=== PATIENT | female | born 1960 | race Caucasian/White ===

== ENCOUNTER → 2023-03-26 17:07 | Outpatient (CLI) | payer OTHER, SELFPAY | PROVIDERS: PCP Physician Assistant; Referring Provider Orthopaedic Surgery; Visit Provider Orthopaedic Surgery | DX: Z01.818 Encounter for other preprocedural examination (principal) | CPT/HCPCS: 93005 ==

== ENCOUNTER 2023-05-25 08:40 | Day surgery (SDC) | payer OTHER, SELFPAY ==
[2023-05-17 12:42] VITALS: BMI 31.2
[2023-05-25] VITALS (11 sets, daily range): BP systolic 111–170; BP diastolic 63–90; PULSE 64–76; RESP 11–17; TEMP 35.7–36.5; O2SAT 93–100; BMI 31.1
--- NOTE | 2023-05-25 | DI.RAD.S_ITS ---
PROCEDURE: XR HIP W PEL IF DONE RT 2V INDICATIONS: POST OP TECHNIQUE: 2 view(s) of the hip acquired. COMPARISON: [facility], CR, XR PELVIS 1-2V, 05/25/2023, 12:23. [facility] [place], CR, XR PELVIS WITH LATERAL HIP RIGHT, 02/26/2023, 11:11. FINDINGS: Bones: Patient is status post right hip arthroplasty, with hardware components in expected positions. The hip joint appears congruent. The visualized bony structures appear intact. Soft tissues: Overlying postoperative changes are noted. No suspicious soft tissue densities. IMPRESSION: Normal postoperative examination. Dictated by: Napoleon Naylor M.D. on 05/25/2023 at 14:18 Approved by: Napoleon Naylor M.D. on 05/25/2023 at 14:18
--- NOTE | 2023-05-25 06:00 | DI.RAD.S_ITS ---
PROCEDURE: XR PELVIS 1-2V INDICATIONS: postop TECHNIQUE: Intra-operative view of the pelvis and hip acquired. COMPARISON: [facility] [place], [place], XR PELVIS WITH LATERAL HIP RIGHT, 02/26/2023, 11:11. FINDINGS: Bones: Intraoperative devices prior to placement of arthroplasty prostheses are in expected positions. No fractures or suspicious bony lesions. Soft tissues: Overlying surgical retractors are present, along with other intraoperative changes. IMPRESSION: Intraoperative right hip arthroplasty. Dictated by: Sonja Cameron M.D. on 05/25/2023 at 13:31 Approved by: Sonja Cameron M.D. on 05/25/2023 at 13:31
[2023-05-25] MEDS: CELECOXIB 200 MG CAPSULE PO (09:33)
[2023-05-25] MEDS: ACETAMINOPHEN 325 MG TABLET 975 MG PO (09:33)
[2023-05-25] MEDS: LACTATED RINGERS 1,000 ML 42 ML IV (09:34)
[2023-05-25] MEDS: VANCOMYCIN 1,000 MG/200 ML PIGGYBACK 200 MG IV (10:03)
--- NOTE | 2023-05-25 10:39 | P.OP_ITS ---
Operative Date/Time/Diagnoses Date of procedure: 05/25/23 Time of procedure: 11:20 Pre-op diagnosis: right hip OA Post-op diagnosis: same Procedure & Clinicians Procedure: Right total hip arthroplasty posterior approach Same procedure as scheduled: Yes Indications: The patient has had progressively worsening right hip pain with radiographic changes consistent with arthritis. Non-operative management has failed and the patient has requested total hip replacement. The risks, benefits and alternatives to surgery were discussed with the patient prior to proceeding. Risks discussed included, but were not limited to, failure to relieve pain, leg length discrepancy, dislocation, stiffness, infection, nerve damage, deep venous thrombosis, pulmonary embolism, stroke, coma, heart attack, permanent paralysis and , as well as the potential need for eventual revision of the prosthetic. Surgeon: Emelia Urena Registered Physical Therapist: Idris Burris Anesthesia Type: General Operative Notes Findings: Severe right hip OA, adequate bone, adequate stability Closure Type: primary Specimen(s): none sent Prosthetic devices, grafts, tissues, transplants, or devices: Urena and Nephew 54mm R3, one 6.5 mm screw, dual mobility 42 by 54 liner, 28 by 42mm, +8 oxinium 28 head, Polarstem size 3 lateral with collar, Estimated Blood Loss (mL): 250 Blood products transfused: none Procedure in detail: The patient was seen in the pre-operative area, where the patient identified the right hip as the operative site and this was marked with my initials. The patient received pre-operative antibiotics and was taken to the operating room and placed on the operative table in the left lateral decubitus position after satisfactory anesthesia. A supervisor kennel out was performed. The right leg was prepared from the ankle to the iliac crest with ChloroPrep in the usual fashion and draped through sterile drapes. The hip was approached through an approximately 20 cm incision centered over the greater trochanter and curving gently posteriorly as it went proximally. This was carried sharply to the fascia adam, which was divided and retracted with a self retaining retractor. The trochanteric bursa was excised with care being taken to avoid the sciatic nerve, which was identified and protected throughout the case. The short external rotators were incised and the capsulomuscular flap was raised and tagged for later repair. The hip was dislocated, and a femoral neck osteotomy performed approximately 15 mm above the lesser trochanter. Retractors were placed around the femur. The canal was opened with a box cutting osteotome, followed by a T handled reamer and a lateralizing reamer. The chili pepper broach was then used, followed by sequential broaching until there was good stability of the broach in the femur. Retractors were placed to expose the acetabulum. The labrum and central soft tissues were removed. Reaming was performed initially going up in 2 mm increments, then 1 mm increments until good bite was obtained with an odd sized reamer. The cup 1 mm larger than the last reamer was then inserted using the appropriate anteversion guides. It was further stabilized with a single screw. A trial neutral liner was placed. The broach was placed in the canal. A trial head and neck were then placed and the hip relocated and checked for leg length and stability. An intraoperative film confirmed the component position and no evidence of fracture. The patient was stable in the position of sleep, of squatting, and could be put through a range of motion with 45 degrees internal rotation without dislocation. At 90 degrees flexion, internal rotation to 70 degrees was possible before dislocation. This was felt to be satisfactory and the appropriate components were opened, and the trials were removed. The acetabular dual mobility liner was impacted into position. The final stem was then impacted into the prepared femoral canal. A brief Betadine soak was performed while trialing with head options. The hip was meticulously irrigated with normal saline. Finally the femoral head was impacted onto the stem. The acetabulum was cleared of all material and the hip relocated one final time. The capsulomuscular flap was then repaired to the greater trochanter though an awl hole using the tag sutures. The short external rotators were repaired with a nonabsorbable suture. The fascia adam was closed with Vicryl. The subcutaneous layer was closed with barbed sutures and SteriStrips. An Aquacel Ag dressing was applied and the patient was taken to recovery having tolerated the procedure well. Complications: none Post-operative Condition: stable Disposition: Acute Care Plan for aftercare: The patient will be maintained on a standard total hip replacement protocol with weight bearing as tolerated and posterior hip precautions. The patient will receive Aspirin and sequential compression devices for DVT prophylaxis. The patient will be discharged home when safe for the home environment.
--- NOTE | 2023-05-25 10:39 | PM.PREOP ---
Pre-operative Note Interval Note History & Physical reviewed/Exam performed by Physician: Yes Changes to H&P: No
[2023-05-25] MEDS: CEFAZOLIN 2 GM/100 ML PREMIX 100 ML IV ×2 (11:15→18:17)
[2023-05-25] MEDS: TRANEXAMIC ACID 1,000 MG VIAL 1000 MG INJ ×2 (11:30→13:01)
--- NOTE | 2023-05-25 11:45 | SUR.OPER ---
Lateral on padded OR bed. Gel axillary roll. Arms secured on padded armboard with pillow supporting top arm. Padded hip positioner braces x4 - anterior and posterior chest and pelvis. Additional gel pad used anterior pelvis. Gel pad under bottom leg from knee to foot and secured with tape over sheet.
[2023-05-25] MEDS: BUPIVACAINE LIPOSOME 266 MG/20 ML VIAL INJ (11:51)
[2023-05-25] MEDS: BUPIVACAINE 0.25% (PF) 60 ML, EPINEPHrine 0.3 MG INJ (11:52)
[2023-05-25] MEDS: ONDANSETRON 4 MG/2 ML INJ IV (13:58)
[2023-05-25] MEDS: METOCLOPRAMIDE 10 MG/2 ML INJ IV (13:58)
[2023-05-25] MEDS: TRAMADOL 50 MG TABLET PO (14:10)
[2023-05-25] MEDS: hydrOXYzine 50 MG/ML INJ 25 MG IM (14:43)
[2023-05-25] MEDS: IBUPROFEN 400 MG TABLET PO ×3 (16:04→23:47)
[2023-05-25] MEDS: LACTATED RINGERS 1,000 ML 100 ML IV ×2 (16:11→17:25)
[2023-05-25] MEDS: ACETAMINOPHEN 325 MG TABLET 650 MG PO ×2 (16:20→21:38)
[2023-05-25] MEDS: DICYCLOMINE 10 MG CAPSULE 20 MG PO ×2 (17:25→20:54)
--- NOTE | 2023-05-25 17:31 | PT-IP ANOTE ---
PT attempted to perform PT eval, however pt reports she is too tired and groggy to attempt objective eval. PT eval to be performed on next service day. All neds were met and call light was placed within reach.
--- NOTE | 2023-05-25 18:12 | PC.NURSE ---
Patient arrived from PACU at 1500. VSS, afebrile on RA. She reports pain in is minimal to R hip. Aquacel to R hip C/D/I. She is initially very lethargic, able to answer simple single questions and dozes off back to sleep. Pt denies any numbness to BLE's. She awakens at approximately 1745 and is able to tolerate dinner well. Admission assessment completed. IVF LR @100ml/hr. Patient states she has not voided since this a.m. going in to surgery approximately 0930 a.m.
[2023-05-25] MEDS: DOCUSATE 100 MG CAPSULE PO (20:54)
[2023-05-25] MEDS: ASPIRIN EC 81 MG TABLET PO (20:54)
[2023-05-25] MEDS: ATORVASTATIN 20 MG TABLET 80 MG PO (20:54)
[2023-05-25] MEDS: METFORMIN XR 500 MG TABLET 750 MG PO (20:54)
[2023-05-25] MEDS: ALPRAZolam 0.25 MG TABLET 0.5 MG PO (21:36)
--- NOTE | 2023-05-26 | PC.NURSE ---
Patient is alert and oriented. Breath sounds CTA with RA sat of 99%; remains on continuos oximetry per MD order. HRR. Denied nausea. BT hypoactive and denies flatus as yet; states she has history of constipation following past surgery. Voiding on toilet; denied dysuria. Is able to move herself in bed. Up to bathroom with walker and 2 assists as earlier reportedly had difficulty with right knee buckling. Has had pain in right LE related to surgery and chronic L3-5 nerve compression but pain has been managed with use of scheduled ibuprofen + tylenol. Aquacel dressing to right posterior hip is CDI. CMS is intact except is unable to lift right leg off bed. Fall risk assessment is high and bed alarm is activated. Wearing bilateral calf SCD's.
[2023-05-26 00:12] VITALS: BP 119/63; PULSE 64; RESP 16; TEMP 35.8; O2SAT 100
[2023-05-26] MEDS: CEFAZOLIN 2 GM/100 ML PREMIX 100 ML IV (02:58)
[2023-05-26] MEDS: ACETAMINOPHEN 325 MG TABLET 650 MG PO ×3 (03:54→15:21)
[2023-05-26] MEDS: IBUPROFEN 400 MG TABLET PO ×4 (03:55→15:21)
[2023-05-26 06:25] VITALS: BP 109/55; PULSE 72; RESP 18; TEMP 35.7; O2SAT 99
[2023-05-26 06:28] LABS: Hematocrit 28.6 % (36-46); Hemoglobin 9.8 g/dL (12.0-16.0)
--- NOTE | 2023-05-26 08:42 | CM.DANOTE ---
DCP: Case received, EMR reviewed and met with patient. Introduced self and role. Was able to obtain information regarding patient's baseline activity level prior to surgery. DCP assessment completed with information currently available. Patient is a 63 year old female who admitted yesterday morning to the care of the orthopedic team. PCP: Dr. Morris. Payer: confirmed: [facility] ([place]) Patient came to the hospital for a surgical procedure. Patient had right total hip arthroplasty posterior approach. Patient has history of right hip OA. Met with patient in her room. She is alert, oriented, was sitting up having her breakfast. Confirmed that she resides outside of [place], lives alone, but her brother, Phil, and spouse, live on the property. She is independent, does use a cane at times for stability. 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 She has three stairs to get in the home, and confirmed that her brother and [id number] should be able to assist her when she goes home. She will be working with P.T. P: DCP to continue to follow for any needs. Patient should be able to go home when stable, but will need to see how she does with P.T. Clarita Grant RN/Community Reinvestment Act Officer Discharge Planning/Care Management CM Discharge Assessment Start: 05/26/23 08:41 Freq: Status: Active Protocol: Document 05/26/23 08:41 (Rec: 05/26/23 08:42 [id number]) Discharge Planning Assessment Assigned Casting Finisher Clarita Grant RN/Community Reinvestment Act Officer Advance Directives? No History Provided By Patient,Medical Record Prior Living Arrangements House Household Members family Comment Phil Villalobos and spouse live on the property Type of transporation used prior to Drives own vehicle admit Independent with ADL's Yes Is patient alert and oriented? Yes DME Already Rented / Owned Cane Barriers to Discharge No Discharge Plan Home Whiteboard Updated in Patient Room with Yes name and ext. # of Casting Finisher Review Status In Process Next Review Type Continued Stay Review Pre-Anesthesia Assessment Start: 05/17/23 12:42 Freq: Status: Complete Protocol: Document 05/17/23 12:42 [place] (Rec: 05/17/23 13:35 [place] [id number]) Pre-Anesthesia Assessment Patient Information Reviewed Via Phone Assessment Assessment Completed With Patient H&P Completed Within 30 Days Yes: 05/07/23 Diagnostic Results BMP/CMP,CBC,EKG Comment Scanned labs Primary Care Provider Elsie Morris Medical Clearance Received No Seen Specialist in Last 12 Months Yes Specialist Seen Orthopedist Preferred Language Slovenian Height 5 ft 11 in Weight 224 lb Body Mass Index (BMI) 31.2 Hearing Ability Normal Visual Impairment Partially Limited Visual Assist Glasses Dentition Type Dental Implants Barriers to Learning None Other Aids No Hx Anesthesia Reactions Yes: Severe nausea Hx Family Anesthesia Reaction No Hx Malignant Hyperthermia No Hx Blood Transfusions No Hx Blood Transfusion Reaction No Anesthesia Review Requested No Executive Casino Host No alcohol intake current alcohol intake frequency a few times a week Smoking Status Never smoker Substance Use Type does not use Pain Present Pain Reported Comment Back, right hip pain Musculoskeletal Symptoms Back Pain,Joint Pain,Radiating Pain into Limb History of Falling (Recent or History of Yes ) Comment February 2023 Patient is completely paralyzed or No completely immobile Ambulatory Aid Crutches/cane/walker Prosthesis or Orthotic Device Cane Gait/Transferring Normal/bedrest/immobile Mental Status Oriented to own ability Comment Intermittent cane use Is patient on oxygen? No Does patient have LALA/SOB No Hx Sleep Apnea No Currently Taking a Beta Yassine Yes: Metoprolol Can You Climb a Flight of Stairs Without No: due to pain SOB Hx Chest Pain No Hx SOB No Hx Syncope or Dizziness No Anti-Coagulant Therapy Yes: Aspirin Has a Recoater No Hx Pacemaker/ICD No Diet Type At Home Regular,Diabetic Dysphagia No Chronic UTI No Urinary Catheter Present No Hx Urinary Self Catheterization No Diabetes Yes HgbA1C 6.4 Date 03/31/23 Patient No Lactating No Hx Drug Resistant Organism No Presence of External or Internal Medical Yes: Neurostimulator Lt hip, Devices bilateral IOL, hardware in left hand Have you had any close contact with No someone diagnosed with COVID-19? Are you experiencing any of these No symptoms symptoms? Current Living Arrangements House Number of Floors (Floors) One Floor Number of Stairs To Enter/Railing? 3/yes Support System Sibling(s) Does the Patient Have Assistance After Yes Surgery Patient Discharge Plan Description Return Home Feels Safe in Current Environment Yes Been Physically Hurt or Threatened By a No Person in Current Environment Do you have thoughts of harming yourself None or others? Are you currently considering suicide? No Do you have a plan to hurt yourself or No Plan others? Do You Have Any Spiritual Beliefs That No May Affect Your HC Choices? Do You Have Any Cultural Practices That No May Affect Your HC Choices? Who Can We Speak to About Patient's Care Cali Magallon (brother) Identifying Code for Release of Patient declined Information Health Care Proxy/Next of Kin Von Magallon Health Care Proxy /[phone] Emergency Contact Name Cali Magallon Emergency Contact Advance Directives? No PAC Instructions Assistance for 24 hours post- op,Diabetes instructions, Durable medical equipment, Medications to take/avoid, Nasal antibiotic,No ETOH/ petroleum product on skin DOS, NPO,Post-op transportation,Pre -surgical wash,Sensory aids, Sturdy shoes/comfortable clothes,Do not bring valuables and remove jewelry
[2023-05-26] MEDS: DICYCLOMINE 10 MG CAPSULE 20 MG PO ×2 (09:00→12:16)
[2023-05-26] MEDS: METFORMIN XR 500 MG TABLET 750 MG PO (09:01)
[2023-05-26] MEDS: DULOXETINE 30 MG CAPSULE 60 MG PO (09:02)
[2023-05-26] MEDS: GABAPENTIN 100 MG CAPSULE PO (09:03)
[2023-05-26] MEDS: ASPIRIN EC 81 MG TABLET PO (09:03)
[2023-05-26 09:04] VITALS: BP 114/54; PULSE 73
[2023-05-26] MEDS: LOSARTAN 25 MG TABLET PO (09:04)
[2023-05-26] MEDS: DOCUSATE 100 MG CAPSULE PO (09:04)
--- NOTE | 2023-05-26 10:49 | OT.IP.EVAL ---
Current Diagnoses Unilateral primary osteoarthritis, right hip (05/25/23) Surgery Performed Operation Date: 05/25/23 10:45 Actual Procedures p Total Hip Arthroplasty posterior(Right) - Emelia Urena MD Past Medical History (Last Reviewed 05/26/23 @ 13:24 by Samaria Perera PA-C) Diabetes mellitus Hyperlipidemia Obesity Presence of neurostimulator Scoliosis Spinal stenosis Spiral fracture of upper extremity Surgical History (Last Reviewed 05/26/23 @ 13:24 by Samaria Perera PA-C) History of carpal tunnel release History of intraocular lens implant History of laminectomy Occupational Therapy Inpatient Evaluation/Re-Eval M1 PT/OT-IP Prior Functional Status Start: 05/26/23 13:46 Freq: NEEDED Status: Active Protocol: Document 05/26/23 10:09 [facility] (Rec: 05/26/23 14:04 [facility] [id number]) Medical Review Prior Functional Status Medical History Reviewed Yes Communication able to make needs known Mobility and Gait Pt states has been using a cane since her hip pain. Activities of Daily Living and IADL's Able to do ADl and IADL needs but has pain. Social History Household Members none Living Arrangements House Number of Floors (Floors) One Floor Number of Stairs To Enter/Railing? 3 step R rail ascending Home Environment Standard Height Toilet,Walk in Shower,Built-In Shower Seat Home Equipment Front Wheel Walker,Straight Cane,Hand Held Shower Additional Social History Comment pt lives alone but stated that her brother and [id number] lives next door and can assist her if needed but will not be able to stay with her M2 OT-IP Current Condition Start: 05/26/23 13:46 Freq: Status: Active Protocol: Document 05/26/23 10:09 [facility] (Rec: 05/26/23 14:04 [facility] [id number]) Occupational Therapy Current Condition Current Condition Evaluation Date 05/26/23 Treatment Diagnosis S/P R TON posterior approach Diagnosis Onset Date 05/25/23 Post Operative Precautions Posterior Hip Precautions No Hip Flexion > 90 degrees,No Hip Internal Rotation,No Hip Adduction M3 OT- IP Subjective and Pain Start: 05/26/23 13:46 Freq: Status: Active Protocol: Document 05/26/23 10:09 [facility] (Rec: 05/26/23 14:04 [facility] [id number]) OT- Subjective Occupational Therapy Visit Type Type Initial Evaluation Visit Start Time 10:09 Visit Stop Time 10:49 Total Visit Minutes 40 Occupational Therapy Visit Comments Patient Comments Pt agreed to get up. Patient/Caregiver Goals To go home. OT Pain Assessment Pain When Pain Assessed At Rest Pain Present Pain Present Denied Pain M4 OT- IP ADL's Start: 05/26/23 13:46 Freq: Status: Active Protocol: Document 05/26/23 10:09 [facility] (Rec: 05/26/23 14:04 [facility] [id number]) OT [id number]-[id number] General Evaluation Self-Feeding Ability Independent OT ADL-Grooming General Evaluation Grooming Ability Independent OT ADL-Oral Care General Eval Oral Care Ability Independent OT ADL-Dressing General Eval Lower Body Dressing Ability Maximum Assistance Areas Needing Assistance Socks Comments OT Dressing Comments Pt needing assist for clothing over her feet and has a tailings worker to assist at home. Pt states to just wear slip on shoes. Pt would benefit from a sock aid. OT ADL-Toileting Comments OT Toileting Comments Pt educated to stand to wipe to best follow her hip precautions. Pt would benefit from a bedside commode as she gets up 2-3 times at night. OT ADL-Bathing Comments OT Bathing Comments Pt would benefit from a shower chair and assist at home to shower. M5 OT- IP IADL's Start: 05/26/23 13:46 Freq: Status: Active Protocol: Document 05/26/23 10:09 [facility] (Rec: 05/26/23 14:04 [facility] [id number]) OT-Instrumental Activities of Daily Living Deficits IADL Deficits Identified Deficits Home Safety Awareness Awareness of Need for Assistance at Home Good Awareness Ability to Problem Solve Emergency Able to Problem Solve Situations Home Safety Comments Pt's brother and sister in law to assist with needs but not able to stay with her. Medication Management Medication Management No Deficits Identified Money Management Money Management No Deficits Identified Meal Preparation Meal Preparation Caregiver Provides Assist Medical Biller Medical Biller Caregiver Provides Assist M6 OT- IP Functional Cognition Start: 05/26/23 13:46 Freq: Status: Active Protocol: Document 05/26/23 10:09 [facility] (Rec: 05/26/23 14:04 [facility] [id number]) Cognitive Factors Limiting Selfcare Function Cognitive Ability Level of Alertness Alert Patient Orientation Name,Age,Birthday,Month,Date, Year,Day of Week,Place, Situation Attention Span Ability Capable of Focused Attention, Capable of Sustained Attention Ability to Follow Commands Able to Follow Multi-Step Commands Cognitive Comments Cognitive Assessment Comments Pt able to follow commands to incorporate hip precautions for ADl and mobility needs. OT- Vision and Hearing OT- Hearing Assessment OT- Hearing Assessment WFL OT- Vision Assessment Visual Acuity Glasses All The Time M7 OT- IP Mobility and Balance Start: 05/26/23 13:46 Freq: Status: Active Protocol: Document 05/26/23 10:09 [facility] (Rec: 05/26/23 14:04 [facility] [id number]) OT- Bed Mobility Assessment Supine to Sit Supine to Sit Assist Contact Guard Assistance Sit to Supine Sit to Supine Assist Contact Guard Assistance OT-Transfer Assessment Sit to and From Stand Sit to and from Stand Standby Assistance,Contact Guard Assistance,Moderate Assistance Transfers Transfer Ability Standby Assistance Technique Transfer Destination Bed,Chair,Toilet Transfer Technique Stand Step Pivot Devices Transfer Assistive Devices Gait Belt,Front Wheeled Walker Comments Mobility Comments Educated pt on use of gait belt strap to assist her leg into and out of the bed. Pt has a head board that she can use to assist to stand from her bed. Initially if pt not able to use a higher surface to push from needs MOD to stand and tends to twist her leg while getting up. When able to use armrests of high recliner able to come to stand with CGAto close SBA. OT- Balance Assessment Sitting Balance and Reactions Static Sitting Balance Ability Normal Dynamic Sitting Balance Ability Good Standing Balance and Reactions Static Standing Balance Ability Fair Dynamic Standing Balance Ability Fair M8 OT- IP Objective Assessments Start: 05/26/23 13:46 Freq: Status: Active Protocol: Document 05/26/23 10:09 [facility] (Rec: 05/26/23 14:04 [facility] [id number]) OT Gross Range of Motion Upper Extremity Range of Motion Assessment Within Functional Limits OT Strength Upper Extremity Strength Assessment Within Functional Limits OT-Muscle Tone Assessment Muscle Tone WNL Yes M9 OT- IP Assessment and Plan Start: 05/26/23 13:46 Freq: Status: Active Protocol: Document 05/26/23 10:09 [facility] (Rec: 05/26/23 14:04 [facility] [id number]) OT Summary Assessment and Plan Potential Rehabilitation Potential Good Analytic Complexity at Evaluation Low Summary OT Impairments Strength,Balance,Functional Mobility,Dressing,Toileting, Bathing,Toilet Transfers, Shower Transfers Progress Towards Goals Progressing Toward Goals Assessment Summary Pt low complexity and main barriers are steps and getting up form higher surfaces. Pt will benefit from assist with ADL needs as well especially for LB dressing, toileting , and showering needs. Pt to go home with 24/7 available assist and have outpt PT. Goals Grooming Goal Independent Dressing Goal Independent Toileting Goal Independent Bathing Goal Independent Toilet Transfer Goal Independent Shower Transfer Goal Independent Days to Meet Goals 10 Frequency of Treatment Frequency Of Treatment Once a Day Treatment Plan OT Treatment Plan ADL Training,Functional Mobility,Patient/Family Education,Discharge Planning Discharge Recommendations OT Discharge Recommendations Home with 24/7 Assist Available,Outpatient PT Home Equipment Needs BSC, shower chair Transportation Needs at Discharge Private Vehicle
--- NOTE | 2023-05-26 11:13 | PT.IIE ---
Current Diagnoses Unilateral primary osteoarthritis, right hip (05/25/23) Surgery Performed Operation Date: 05/25/23 10:45 Actual Procedures p Total Hip Arthroplasty posterior(Right) - Emelia Urena MD Surgical History (Last Reviewed 05/26/23 @ 13:24 by Samaria Perera PA-C) History of carpal tunnel release History of intraocular lens implant History of laminectomy Medical History (Last Reviewed 05/26/23 @ 13:24 by Samaria Perera PA-C) Diabetes mellitus Hyperlipidemia Obesity Presence of neurostimulator Scoliosis Spinal stenosis Spiral fracture of upper extremity Physical Therapy Inpatient Evaluation/Re-Eval M1 PT/OT-IP Prior Functional Status Start: 05/26/23 12:46 Freq: NEEDED Status: Active Protocol: Document 05/26/23 11:13 AB (Rec: 05/26/23 13:39 AB [email or web address]) Medical Review Prior Functional Status Medical History Reviewed Yes Communication able to make needs known Mobility and Gait pt stated that she is independent with all mobilities and ambulation without AD Social History Household Members none Living Arrangements House Number of Floors (Floors) One Floor Number of Stairs To Enter/Railing? 3 step R rail ascending Home Environment Standard Height Toilet,Walk in Shower,Built-In Shower Seat Home Equipment Front Wheel Walker,Straight Cane,Hand Held Shower Additional Social History Comment pt lives alone but stated that her brother and [id number] lives next door and can assist her if needed but will not be able to stay with her pt has a toilet safety frame at home M2 PT-IP Current Condition Start: 05/26/23 12:46 Freq: NEEDED Status: Active Protocol: Document 05/26/23 11:13 AB (Rec: 05/26/23 13:39 AB [email or web address]) Physical Therapy Current Condition Current Condition Evaluation Date 05/26/23 Treatment Diagnosis s/p R TON posterior approach; difficulty in walking Onset Date 05/25/23 M3 PT-IP Subjective Start: 05/26/23 12:46 Freq: NEEDED Status: Active Protocol: Document 05/26/23 11:13 AB (Rec: 05/26/23 13:39 AB [email or web address]) Subjective Physical Therapy Visit Type Type Initial Evaluation Visit Start Time 11:13 Visit Stop Time 12:09 Total Visit Minutes 56 Number of OFFICE COORDINATOR RECEPTIONIST Visits 0 Physical Therapy Visit Comments Patient Comments agreeable to do PT Therapy Pain Assessment Pain When Pain Assessed During Mobility Pain Present Pain Present Pain Reported Location R hip Intensity 7 Scale Used Numeric (0 - 10) Pain Behaviors Guarding,Wincing Pain Management Techniques Distraction,Modification of Treatment,Re-positioning, Timing of Activity with Medications M4 PT-IP Mobility and Gait Start: 05/26/23 12:46 Freq: NEEDED Status: Active Protocol: Document 05/26/23 11:13 AB (Rec: 05/26/23 13:39 AB [email or web address]) PT-Bed Mobility Assessment Supine to Sit Supine to Sit Standby Assistance Sit to Supine Sit to Supine Standby Assistance PT-Transfer Assessment Sit to and From Stand Sit to and from Stand Contact Guard Assistance, Minimal Assistance,1 Person Assistance,Use of Upper Extremities Equipment Transfer Assistive Device Gait Belt,Front Wheeled Walker Orthotic/Prosthetic Devices or Brace: No Transfers Transfer Destination Bed,Chair Transfer Technique ambulated Transfer Ability Level of Assist Contact Guard Assistance Comments Mobility Comments pt sitting on chair and agreeable to do PT. educated on posterior hip precautions and pt able to recall. completed sit to stand from the chair CGA and max cues for precautions. repeated sit<> stand x 2 more reps and needing less cues on succeeding reps. ambulated in room using FWW ~ 15 ft. pt sat on EOB and completed sit <>supine SBA and max cues for techniques. pt completed sit to stand from EOB CGA and cues. ambulated in the hallway using FWW ~ 125 ft CGA and cues. stair climbing training. educated pt on stair climbing techniques. attempted sit to stand from chair x 2 min A and max cues. pt c/o increase hip pain to 7/10 and stated that she cannot do stairs. assisted pt back to her room. completed sit to stand min A and ambulated to the chair using FWW CGA to min A using FWW. sat on the chair and positioned. call light and table placed within reach. Caregiver training set up this afternoon. pt's brother to come in at 215pm for training. Gait Assessment Gait Gait Assistance Required: Contact Guard Assist,Minimum Assistance Distance (Feet) 125 Able to Maintain Weight Bearing Status Yes During Gait Assistive Devices Assistive Device Gait Belt,Front Wheeled Walker Orthotic/Prosthetic Devices or Brace: No Gait Deviations General Gait Pattern Antalgic,Decreased Stride Length,Decreased Feet Clearance Factors Limiting Gait Function Factors Limiting Gait Function Decreased Activity Tolerance, Decreased Sensation,Decreased Strength,Difficulty Following Directions,Limited Range of Motion,Pain,Poor Balance,Poor Safety Awareness PT-Balance Assessment Sitting Balance and Reactions Static Sitting Balance Ability Normal Dynamic Sitting Balance Ability Good Standing Balance and Reactions Static Standing Balance Ability Fair Dynamic Standing Balance Ability Fair Device Used FWW M5 PT-IP Objective Assessments Start: 05/26/23 12:46 Freq: NEEDED Status: Active Protocol: Document 05/26/23 11:13 AB (Rec: 05/26/23 13:39 AB [email or web address]) Orientation Orientation/Cognition Level of Alertness Alert Orientation Name,Situation Language Function Ability No Deficits Noted Safety Awareness Decreased Safety Awareness Memory Description Short Term Impaired Gross Range of Motion Lower Extremity ROM Assessment Within Functional Limits Strength Lower Extremity Strength Assessment Bilaterally Impaired Comments Strength Comments R hip: 3+/5 L hip: 3+/5 L knee: 4+/5 Coordination Assessment Gross Coordination Gross Coordination WNL Sensation Assessment Sensation Gross Sensation Right LE Impaired Sensation Description Numbness Comments Sensation Comments RLE numbness/tingling Muscle Tone Muscle Tone WNL Yes M6 PT-IP Treatment Start: 05/26/23 12:46 Freq: NEEDED Status: Active Protocol: Document 05/26/23 11:13 AB (Rec: 05/26/23 13:39 AB [email or web address]) Physical Therapy Treatment Education Education Provided Precautions,Weight Bearing Status,Safety M7 PT-IP Assessment and Plan Start: 05/26/23 12:46 Freq: NEEDED Status: Active Protocol: Document 05/26/23 11:13 AB (Rec: 05/26/23 13:39 AB [email or web address]) PT Summary Assessment and Plan Potential Rehabilitation Potential Fair Status of Condition at Evaluation Evolving Summary Impairments Pain,ROM,Strength,Balance, Coordination,Sensation,Tone, Cognition,Bed Mobility, Transfers,Gait,Activity Tolerance Assessment Summary pt is a 63 y/0 female who underwent R TON posterior approach. Pt has posterior hip precautions and is WBAT on RLE. pt lives alone but stated that her brother and MOOSE lives next door and will be able to assist her when needed. Current level of function: CGA to min A using FWW and unable to complete stair climbing due to c/o increase hip pain. caregiver training set up this afternoon at 215 pm. will continue to assess progress. Goals Bed Mobility Goal Independent Transfer Goal Independent,Front Wheeled Walker Gait Goal Independent,Front Wheel Walker Gait Distance 250 Other Goals up/down 3 steps R rail ascending SBA Days to Meet Goals 10 Frequency of Treatment Frequency Of Treatment Twice a Day Treatment Plan Physical Therapy Treatment Plan Bed Mobility Training,Transfer Training,Gait Training, Therapeutic Exercise,Balance Retraining,Post Op Education, Discharge Planning,Hot or Cold Pack,Neuromuscular Re-ed, Coordination Retraining,Manual Therapy Precautions Posterior Hip Precautions No Hip Flexion > 90 degrees,No Hip Internal Rotation,No Hip Adduction Weight Bearing Status Weight Bearing Status Weight Bear as Tolerated Allowed Weight Bearing Amount (enter % RLE WBAT or #) (%) Recommendations To Nursing Amount of Assist Needed 1 Person Assist Discharge Recommendations PT Discharge Recommendations Home with Assistance, Outpatient PT Transportation Needs at Discharge Private Vehicle
[2023-05-26] MEDS: TIZANIDINE 4 MG TABLET PO (12:17)
--- NOTE | 2023-05-26 13:22 | P.DS_ITS ---
History of Present Illness History of Present Illness Chief complaint: Right Total Hip Arthroplasty Narrative: Patient is resting comfortably sitting up in bed this morning. She states that her pain is well controlled, not using any narcotics at this time. She states that she is feeling well and is looking forward to working with physical therapy today. Denies fever, chills, nausea, vomiting. Discharge Providers Provider Discharge Date: 05/26/23 Primary care physician: Elsie Morris Consults: 05/25/23 06:00 Consult to Anesthesiology Routine Comment: Consulting Provider: Anesthesiologist Reason for consultation: Regional block for post operative pain control 05/25/23 15:54 Consult to Discharge Planning Routine Comment: Consult to Occupational Therapy Evaluate & Treat Comment: Physician Instructions: Evaluate and treat Consult to Physical Therapy Evaluate & Treat Comment: Physician Instructions: post op TON protocol Discharge provider: Samaria Perera PA-C Summary Hospital Course Discharge Diagnosis: Status post right total hip arthroplasty Hospital Course: Operative Date/Time/Diagnoses Date of procedure: 05/25/23 Time of procedure: 11:20 Pre-op diagnosis: right hip OA Post-op diagnosis: same Procedure & Clinicians Procedure: Right total hip arthroplasty posterior approach Same procedure as scheduled: Yes Indications: The patient has had progressively worsening right hip pain with radiographic changes consistent with arthritis. Non-operative management has failed and the patient has requested total hip replacement. The risks, benefits and alternatives to surgery were discussed with the patient prior to proceeding. Risks discussed included, but were not limited to, failure to relieve pain, leg length discrepancy, dislocation, stiffness, infection, nerve damage, deep venous thrombosis, pulmonary embolism, stroke, coma, heart attack, permanent paralysis and , as well as the potential need for eventual revision of the prostheti c. Surgeon: Emelia Urena Vp Talent Management: Idris Burris Anesthesia Type: General Operative Notes Findings: Severe right hip OA, adequate bone, adequate stability Closure Type: primary Specimen(s): none sent Prosthetic devices, grafts, tissues, transplants, or devices: Urena and Nephew 54mm R3, one 6.5 mm screw, dual mobility 42 by 54 liner, 28 by 42mm, +8 oxinium 28 head, Polarstem size 3 lateral with collar, Estimated Blood Loss (mL): 250 Blood products transfused: none Exam Vital Signs (past 8 hours): - 05/26/23 06:25 05/26/23 09:04 Temperature 96.3 F L Pulse Rate 72 73 Respiratory Rate 18 Blood Pressure 109/55 L 114/54 L Pulse Oximetry 99 Oxygen Flow Rate 0 Oxygen Delivery Method Room Air Oxygen Flow Rate 0 Narrative Exam Narrative: Pleasant 63-year-old female. Awake, alert, and oriented. Intraoperative dressing clean, dry, and intact. Mild bruising surrounding the medial portion of the dressing. Strength and sensation intact to bilateral lower extremities. Bilateral calf soft, compressible, nontender with no palpable cords or masses. Objective Labs 05/26/23 05:50 Labs: Laboratory Results - last 24 hr 05/26/23 05:50 Hgb 9.8 L Hct 28.6 L PFSH Medical History Diabetes mellitus Hyperlipidemia Obesity Presence of neurostimulator Scoliosis Spinal stenosis Spiral fracture of upper extremity Surgical History History of carpal tunnel release History of intraocular lens implant History of laminectomy Social History household members: family Smoking Status: Never smoker alcohol intake: current Discharge Assessment & Plan Assessment and Plan Assessment: Patient is progressing well following right total hip arthroplasty, postop day 1 Plan of Treatment: Plan to work with physical therapy today, may discharge to home once safe and cleared by physical therapy. Continue multimodal pain regimen as needed. Keep dressing clean, dry, and intact until 2 week postoperative follow-up with orth opedics. Discharge Plan Discharge Plan Patient Disposition: Home Provider Discharge Comment: Discharge home when safe and cleared by Physical therapy Discharge orders & Medications Discharge Orders: Discharge (Order); Ordered 05/26/23 Ordered By: Samaria Perera Prescriptions: New acetaminophen 325 mg Tablet 650 mg PO Q6H Qty: 90 0RF ibuprofen 400 mg Tablet 400 mg PO Q4H Qty: 90 0RF aspirin 81 mg Tablet,Delayed Release (Dr/Ec) 81 mg PO BID Qty: 84 0RF Continued tizanidine 4 mg tablet 4 mg PO 3XD PRN (Reason: muscle spasm) metoprolol succinate 50 mg tablet extended release 24 hr 50 mg PO DAILY alprazolam 0.25 mg tablet 0.5 mg PO DAILY dicyclomine 20 mg tablet 20 mg PO 4XD losartan 25 mg tablet 25 mg PO DAILY metformin 750 mg tablet extended release 24 hr 750 mg PO BID rosuvastatin 40 mg tablet 40 mg PO ONCE PM duloxetine 60 mg capsule,delayed release(DR/EC) 60 mg PO DAILY Rybelsus 7 mg tablet 7 mg PO DAILY gabapentin 100 mg Capsule 100 mg PO DAILY Discontinued aspirin 325 mg Capsule 325 mg PO DAILY Follow up/Referrals: Elsie Morris [facility] [Primary Care Provider] - Emelia Urena MD [Physician] - 2 Weeks Diet/Activity/Treatments Diet: Diet as Tolerated Activity: Up and walking as tolerated Cold/Heat Therapy: Ice to hip as needed Skin/Wound/Dressing Care Report to your healthcare provider any signs of infection, such as:: chills, fever, night sweats, unusual drainage and unusual redness Dressing: Keep dressing clean, dry, and intact until 2 week follow up with ortho Visit Report/Discharge Packet Instructions: DI for Hip Replacement Stand Alone Forms: Patient Portal/API, Surgery Discharge Discharge Data Primary Care Provider: Elsie Morris Attending Provider: Emelia Urena Quality VTE Deep Vein Thrombosis/Pulmonary Embolism Present on Admission: No
[2023-05-26] MEDS: TRAMADOL 50 MG TABLET PO (13:55)
--- NOTE | 2023-05-26 14:23 | PT.IPTN ---
Current Diagnoses Unilateral primary osteoarthritis, right hip (05/25/23) Surgery Performed Operation Date: 05/25/23 10:45 Actual Procedures p Total Hip Arthroplasty posterior(Right) - Emelia Urena MD Physical Therapy Treatment Note M2 PT-IP Current Condition Start: 05/26/23 12:46 Freq: NEEDED Status: Active Protocol: Document 05/26/23 11:13 AB (Rec: 05/26/23 13:39 AB [id number]) Physical Therapy Current Condition Current Condition Evaluation Date 05/26/23 Treatment Diagnosis s/p R TON posterior approach; difficulty in walking Onset Date 05/25/23 M3 PT-IP Subjective Start: 05/26/23 12:46 Freq: NEEDED Status: Active Protocol: Document 05/26/23 14:23 AB (Rec: 05/26/23 15:18 AB [email or web address]) Subjective Physical Therapy Visit Type Type Treatment Note Visit Start Time 14:23 Visit Stop Time 14:50 Total Visit Minutes 27 Number of STATION MECHANIC Visits 0 Physical Therapy Visit Comments Patient Comments agreeable to do PT Therapy Pain Assessment Pain Present Pain Present Denied Pain M4 PT-IP Mobility and Gait Start: 05/26/23 12:46 Freq: NEEDED Status: Active Protocol: Document 05/26/23 14:23 AB (Rec: 05/26/23 15:18 AB [id number]) PT-Bed Mobility Assessment Supine to Sit Supine to Sit Standby Assistance Sit to Supine Sit to Supine Standby Assistance PT-Transfer Assessment Sit to and From Stand Sit to and from Stand Contact Guard Assistance Equipment Transfer Assistive Device Gait Belt,Front Wheeled Walker Orthotic/Prosthetic Devices or Brace: No Transfers Transfer Destination Chair Transfer Technique ambulated Transfer Ability Level of Assist Standby Assistance,Contact Guard Assistance Comments Mobility Comments pt in bed. pt's brother in room for caregiver training. educated pt's brother regarding pt's posterior hip precautions. pt completed supine to sit SBA. educated brother on how to assist and cue pt. educated pt's brother regarding safety belt use and how to assist pt. brother was able to put safety belt on pt and assist pt with sit to stand and ambulation using FWW . pt completed ~ 125 ft using FWW SBA to CGA with her brother assisting. educated with stair climbing. pt completed up/down steps holding on to R rail with B hands with brother providing CGA to min A and cues. pt ambulated back to her room using FWW SBA to CGA ~ 125 ft. pt sat on the chair. positioned pt on the chair. call light and table placed within reach. pt's brother was able to safely assist pt with mobility. pt's brother stated that he can sleep on the couch for the next 2 days if needed to assist pt. pt and brother without further concerns. Gait Assessment Gait Gait Assistance Required: Standby Assistance,Contact Guard Assist Distance (Feet) 125 Able to Maintain Weight Bearing Status Yes During Gait Assistive Devices Assistive Device Gait Belt,Front Wheeled Walker Orthotic/Prosthetic Devices or Brace: No Gait Deviations General Gait Pattern Antalgic,Decreased Stride Length,Decreased Feet Clearance Factors Limiting Gait Function Factors Limiting Gait Function Decreased Activity Tolerance, Decreased Strength,Limited Range of Motion,Poor Balance, Poor Safety Awareness Stair Climbing Assessment Evaluation Level of Assist On Stairs Contact Guard Assistance, Minimal Assistance Devices Stair Climbing Assistive Devices Right Railing Technique/Endurance Stair Climbing Direction Ascend and Descend Stair Climbing Technique Step to Step Number of Steps Climbed 3 Stair Climbing Set # Repetitions (reps) 1 M5 PT-IP Objective Assessments Start: 05/26/23 12:46 Freq: NEEDED Status: Active Protocol: Document 05/26/23 11:13 AB (Rec: 05/26/23 13:39 AB [email or web address]) Orientation Orientation/Cognition Level of Alertness Alert Orientation Name,Situation Language Function Ability No Deficits Noted Safety Awareness Decreased Safety Awareness Memory Description Short Term Impaired Gross Range of Motion Lower Extremity ROM Assessment Within Functional Limits Strength Lower Extremity Strength Assessment Bilaterally Impaired Comments Strength Comments R hip: 3+/5 L hip: 3+/5 L knee: 4+/5 Coordination Assessment Gross Coordination Gross Coordination WNL Sensation Assessment Sensation Gross Sensation Right LE Impaired Sensation Description Numbness Comments Sensation Comments RLE numbness/tingling Muscle Tone Muscle Tone WNL Yes M6 PT-IP Treatment Start: 05/26/23 12:46 Freq: NEEDED Status: Active Protocol: Document 05/26/23 14:23 AB (Rec: 05/26/23 15:18 AB [email or web address]) Physical Therapy Treatment Education Education Provided Precautions,Weight Bearing Status,Safety M7 PT-IP Assessment and Plan Start: 05/26/23 12:46 Freq: NEEDED Status: Active Protocol: Document 05/26/23 14:23 AB (Rec: 05/26/23 15:18 AB [email or web address]) PT Summary Assessment and Plan Potential Rehabilitation Potential Good Summary Impairments Pain,ROM,Strength,Balance, Coordination,Sensation,Tone, Cognition,Bed Mobility, Transfers,Gait,Activity Tolerance Progress Towards Goals Progressing Toward Goals Assessment Summary Caregiver training conducted. pt 's brother was able to safely assist pt. pt may go home when medically stable with assistance and outpt PT. Goals Bed Mobility Goal Independent Transfer Goal Independent,Front Wheeled Walker Gait Goal Independent,Front Wheel Walker Gait Distance 250 Other Goals up/down 3 steps R rail ascending SBA Days to Meet Goals 10 Frequency of Treatment Frequency Of Treatment Twice a Day Treatment Plan Physical Therapy Treatment Plan Bed Mobility Training,Transfer Training,Gait Training, Therapeutic Exercise,Balance Retraining,Post Op Education, Discharge Planning,Hot or Cold Pack,Neuromuscular Re-ed, Coordination Retraining,Manual Therapy Precautions Posterior Hip Precautions No Hip Flexion > 90 degrees,No Hip Internal Rotation,No Hip Adduction Weight Bearing Status Weight Bearing Status Weight Bear as Tolerated Allowed Weight Bearing Amount (enter % RLE WBAT or #) (%) Recommendations To Nursing Amount of Assist Needed 1 Person Assist Discharge Recommendations PT Discharge Recommendations Home with Assistance, Outpatient PT Transportation Needs at Discharge Private Vehicle
== END 2023-05-26 15:37 | disposition home or self-care (01) ==
LOC: OR 08:40 → AC 11:33
PROVIDERS: PCP Physician Assistant; Referring Provider Orthopaedic Surgery; Visit Provider Orthopaedic Surgery
PROC: 0SR90JZ Replacement of Right Hip Joint with Synthetic Substitute, Open Approach (ICD-10-PCS; CPT 27130; principal; 2023-05-25 10:45)
DX: M16.11 Unilateral primary osteoarthritis, right hip (principal); M48.062 Spinal stenosis, lumbar region with neurogenic claudication; E11.9 Type 2 diabetes mellitus without complications; I10 Essential (primary) hypertension; E78.5 Hyperlipidemia, unspecified; E66.9 Obesity, unspecified; Z68.32 Body mass index [BMI] 32.0-32.9, adult; Z79.84 Long term (current) use of oral hypoglycemic drugs
CPT/HCPCS: 27130; 36415; 72170; 73502; 82962; 85014; 85018; 97162; 97165; 97530; 97535; C1776; C9290; J0171; J0690; J1100; J1885; J2405; J2704; J2765; J3010; J3410

== ENCOUNTER → 2023-08-23 12:06 | Outpatient (CLI) | payer MEDICARE, SELFPAY ==
[2023-05-25 18:04] VITALS: BMI 31.1
--- NOTE | 2023-08-23 | DI.CT.S_ITS ---
PROCEDURE: CT LUMBAR SPINE WO CON INDICATIONS: Spinal stenosis, lumbar region TECHNIQUE: Noncontrast 3 mm thick sections acquired from the T12 level to the sacrum. Sagittal and coronal reformats were constructed. For radiation dose reduction, the following was used: automated exposure control. COMPARISON: None. FINDINGS: Image quality: Excellent. Bones: No acute vertebral body compression fractures. Anterior wedging of the T12 vertebral body. No suspicious lytic or blastic bony lesions. L1 vertebral hemangioma. No pars defects. Grade 1 retrolisthesis of L2 on L3. T12-L1: Moderate disc height loss and mild facet hypertrophy. L1-L2: Moderate disc height loss and mild facet hypertrophy and arthrosis. L2-L3: Severe disc height loss with disc osteophyte complex and mild facet hypertrophy. Moderate left and mild right neural foraminal narrowing. L3-L4: Severe disc height loss with disc osteophyte complex. Laminectomy at this level. [id number] bilateral neural foraminal narrowing. L4-L5: Moderate to severe disc height loss, superimposed broad-based disc bulge and disc osteophyte complex. Laminectomy. Facet hypertrophy, left greater than right. Moderate to severe bilateral neural foraminal narrowing. L5-S1: Moderate disc height loss with disc osteophyte complex. Laminectomy. Soft tissues: No retroperitoneal masses or hematomas. Visualized aorta is normal in caliber. IMPRESSION: L3 through L5 laminectomy. No severe spinal canal or neural foraminal narrowing. Multilevel degenerative disc disease and facet arthrosis. Of note, there is [id number] bilateral neural foraminal narrowing at L3-4, moderate left and mild right neural foraminal narrowing at L2-3, and moderate to severe bilateral neural foraminal narrowing at L4-5. Dictated by: Layton Webb M.D. on 08/23/2023 at 16:10 Approved by: Layton Webb M.D. on 08/23/2023 at 16:21
== END ==
PROVIDERS: PCP Physician Assistant; Referring Provider Orthopaedic Surgery Orthopaedic Surgery of the Spine; Visit Provider Orthopaedic Surgery Orthopaedic Surgery of the Spine
DX: M48.062 Spinal stenosis, lumbar region with neurogenic claudication (principal); M51.36 Other intervertebral disc degeneration, lumbar region; M47.816 Spondylosis without myelopathy or radiculopathy, lumbar region
CPT/HCPCS: 72131

== ENCOUNTER 2024-01-24 11:32 | Inpatient (IN) | payer MEDICARE, SELFPAY ==
[2023-05-25 18:04] VITALS: BMI 31.1
[2023-12-20 12:36] VITALS: BMI 31.5
[2024-01-24] VITALS (14 sets, daily range): BP systolic 118–138; BP diastolic 62–74; PULSE 66–92; RESP 12–20; TEMP 35.8–36.6; O2SAT 93–99; BMI 31.5
[2024-01-24] MEDS: LACTATED RINGERS 1,000 ML 42 ML IV ×3 (12:20→17:11)
--- NOTE | 2024-01-24 13:12 | PM.PREOP ---
Pre-operative Note Interval Note History & Physical reviewed/Exam performed by Physician: Yes Changes to H&P: No
[2024-01-24] MEDS: ACETAMINOPHEN 325 MG TABLET 975 MG PO (13:24)
--- NOTE | 2024-01-24 13:26 | SUR.PREOP ---
See order for Tylenol from Dr Feng. Pt declines allergy to acetaminophen and states she takes it home
[2024-01-24] MEDS: CEFAZOLIN 2 GM/100 ML PREMIX 100 ML IV ×2 (13:55→20:52)
--- NOTE | 2024-01-24 14:16 | SUR.OPER ---
Prone on spine table, head in foam head support, padded chest and pelvic supports, gel pad at knees, lower legs supported by pillows; nipples, genitalia and toes free of pressure, arms secured on foam padded arm boards at <90 degrees abduction. Tape over blanket at thigh secured to table.
[2024-01-24] MEDS: BUPIVACAINE LIPOSOME 266 MG/20 ML VIAL INJ (14:39)
[2024-01-24] MEDS: BUPIVACAINE 0.25% (PF) 60 ML, EPINEPHrine 0.15 MG INJ (14:40)
--- NOTE | 2024-01-24 17:38 | DI.RAD.S_ITS ---
PROCEDURE: XR LUMBAR SPINE 2-3V INDICATIONS: L4-5, L5-S1 TLIF ROBOT TECHNIQUE: 3 views of the lumbar spine were acquired. COMPARISON: [facility], CT, CT LUMBAR SPINE WO CON, 08/23/2023, 12:27. FINDINGS: Intraoperative images demonstrating L4-5 and L5-S1 posterior fusion with intervertebral spacers. Hardware appears intact. There is relatively good anatomic alignment. IMPRESSION: Intraoperative L4-5 and L5-1 fusion images. Dictated by: Sonja Cameron M.D. on 01/24/2024 at 18:08 Approved by: Sonja Cameron M.D. on 01/24/2024 at 18:09
--- NOTE | 2024-01-24 18:28 | PM.OP.1 ---
Operative Date/Time/Diagnoses Date of procedure: 01/24/24 Time of procedure: 14:00 Pre-op diagnosis: 1. L4-5, L5-S1 spondylolisthesis 2. Lumbar foramen stenosis 3. History of laminectomy with epidural scarring Post-op diagnosis: same Procedure & Clinicians Procedure: 1. L4-5, L5-S1 Postero-lateral and posterior interbody fusion 2. L4-5, L5-S1 interbody cage placement. 3. L4-5, L5-S1 decompressive laminectomy with bilateral facetecomies 4. L4-5, L5-S1 Posterior segmental instrumentation 5. [place] of bone marrow from iliac crest 6. Utilization of microsurgical technique and operating microscope Same procedure as scheduled: Yes Indications: Patient has been having chronic back pain and worsening lumbar radiculopathy, right worse than left. Patient had a previous lumbar laminectomy with epidural scarring, anterolisthesis, severe foraminal stenosis at L4-5 L5-S1 level correlating with her current symptoms. Patient failed multiple conservative management with worsening pain weakness and numbness in her lower extremity. Patient has been having difficulty performing activity of daily living. After discussing risks benefits of treatment options, patient elected proceed with surgery. Surgeon: Agueda Jose Engraver Optical Frames: Jeanine Cameron Click Yes if Unassisted: No Anesthesia Type: General Operative Notes Closure Type: primary Specimen(s): none sent Prosthetic devices, grafts, tissues, transplants, or devices: Globus CREO MIS screws, Rise cages Applied: catheter Estimated Blood Loss (mL): 150 Blood products transfused: none Procedure in detail: Patient was seen in the preoperative area. Risks and benefits of the surgery was discussed with the patient. Informed consent was obtained from the patient and placed in the chart. Surgical site was marked. Patient was taken to the operative room. General anesthesia was administered. Prophylactic antibiotic was given to the patient less than 30 min before the incision was made. Patient was placed into a prone position on the Ron table. Patient's back was then prepped and draped in the sterile fashion. Time-out was performed at this time. After patient was prepped and draped, patient's PSIS was palpated and marked bilaterally. Small 1 cm incision was made over the PSIS for placement of the reference probes. Two trocar was placed into the PSIS 1 on each side. The reference probe was attached to the trocar of the reference apparatus. At this time the C-arm imaging was used to confirm AP and lateral of L4-L5, L5-S1 vertebrae and merged the C-arm imaging using the Availink robotic navigation system with the CT of the lumbar spine. After successful merging was completed and confirmed, skin marker was used to jemma out the skin incision using the Availink robotic arm. Bilateral incision was made at this time. Pre templated trajectory was used and guided using the Availink robotic navigation system for bilateral L4, L5, S1 pedicle screw placement. This was done by using the robotic arm to guide the high-speed bur to make a cortical entry point. Next a drill was placed also using the robotic arm and guided using the navigation system drilling partially through bilateral L4, L5 and S1 pedicles. Next L4, L5, S1 pedicle screws it was pre templated and measured was placed onto the power pick up and delivery driver and inserted into the pedicles bilaterally. After all 6 screws were placed C-arm imaging was taken of both AP and lateral to confirm the placement. Excellent placement of the screws were confirmed and a matched precisely with the pre planned screw placement using the navigation system. MARs retractor was inserted using [employer] guidence. Globus MARS retractors was placed inside the incision and docked onto the L4 and L5 lamina. Using microsurgical technique and operating microscope, a L4, L5 laminectomy and L4-5, L5-S1 facetectomy was performed using a Kerrison rongeur. The laminectomy and facetectomy was performed in order to decompress patient's cauda equina as well as the nerve roots exiting at the L4-5, L5-S1 level. Patient was found have severe lateral recess and neural foramen stenosis which was fully decompressed after the laminectomy facetectomy. More than 75% of the facets were removed during the process of decompression rendering L4-5, L5-S1 level grossly unstable and required a fusion procedure at the same time. The disc space at L4-5, L5-S1 was identified, and a total diskectomy was performed at L4-5, L5-S1 level. The endplates were decorticated using a rasp and shaver. The total diskectomy and decortication was performed at L4-5, L5-S1 level in order to to accomplish a L4-5, L5-S1 fusion. The local bone from the laminectomy and facetectomy was saved for local bone grafting. After the total diskectomy and decortication was completed, Viacel bone graft material was combined with local bone that was harvested earlier. Patient has significant amount of epidural scarring which made the laminectomy facetectomy significantly more challenging due to scar tissue. Patient was found to have severe foraminal stenosis at both levels which was fully decompressed after the laminectomy and facetectomy was performed at both levels. At this time, a separate skin is incision was made over the iliac crest. A Jamshidi needle was inserted into the iliac crest through a separate skin incision. 5 cc of bone marrow aspiration was obtained through the separate skin incision using a Jamshidi needle from the iliac crest. The bone marrow aspiration was combined with local bone and the Viacel bone grafting material and DBM bone graft material. The bone grafting material was placed into the L4-5, L5-S1 interbody space along with a expandable cage. The cage was expanded to its maximum height using the torque limiting screwdriver. The disc preparation as well as the cages insertion were also performed under navigation guidance. After the cage was placed, AP and lateral C-arm imaging was taken to confirm placement of the cages and excellent position was confirmed. Globus MARS retractor was inserted and docked onto the L4-5, L5-S1 posterolateral gutter on the right side. Using the power drill, posterior-lateral decortication was performed at L4-5, L5-S1 level until bleeding cortical bone was identified. The remaining bone grafting material was placed into the L4-5, L5-S1 posterior lateral gutter he order to accomplish posterolateral fusion at the L4-5, L5-S1 level. At this time the tulips were attached to the L4, L5, S1 pedicle screw shanks. After measuring the length of the rods, they were inserted into the tulips of the pedicle screws and locked in place using locking caps and torque limiting screwdriver bilaterally. Total 6 caps and 2 titanium rods was used in order to complete the posterior instrumentation construct. After all the hardware was placed, and confirmed with AP and lateral C-arm imaging, the wound was then irrigated with sterile normal saline and packed with Ray-Tanesha gauze for 3 min to accomplish hemostasis. After the gauze was removed the deep fascia was closed with #1 Vicryl suture. The subcutaneous layer was closed with 2-0 Vicryl. The skin was closed with skin leela. Patient tolerated the procedure well. There were no complications. Neuro monitoring system was used to monitor patient's neurologic status throughout entire procedure. There was no disturbance of the neuromonitoring signals throughout the case except the shore intermittent decreased signal to the ulnar nerve monitoring which was related to patient's decreased blood pressure temporarily intraoperative. Once anesthesia corrected patient's blood pressure, patient is EMG normalized to baseline. Patient was neurovascularly intact in bilateral upper and lower extremity exam postoperatively in the recovery room. The Operation could not have been safely performed without compromising the technical result or length of the procedure, without the assistance of a skilled surgical dental assistant. The surgical dental assistant was medically necessary for proper positioning, retraction and manipulation of instruments, proper exposure, surgical preparation, and manipulation of tissue. Complications: none Post-operative Condition: stable Disposition: PACU Plan for aftercare: Admit to inpatient hospital
[2024-01-24] MEDS: hydrOXYzine 50 MG/ML INJ 25 MG IM (18:45)
[2024-01-24] MEDS: METOCLOPRAMIDE 10 MG/2 ML INJ IV (18:45)
[2024-01-24] MEDS: LACTATED RINGERS 1,000 ML 125 ML IV (19:55)
[2024-01-24] MEDS: SENNOSIDES 8.6 MG TABLET 17.2 MG PO (21:31)
[2024-01-24] MEDS: GABAPENTIN 100 MG CAPSULE PO (21:31)
[2024-01-24] MEDS: METOPROLOL ER 50 MG TABLET PO (21:31)
[2024-01-24] MEDS: TIZANIDINE 4 MG TABLET PO (21:31)
[2024-01-24] MEDS: DOCUSATE 100 MG CAPSULE PO (21:31)
[2024-01-24] MEDS: ATORVASTATIN 20 MG TABLET 80 MG PO (21:31)
[2024-01-24] MEDS: TRAMADOL 50 MG TABLET PO (21:31)
--- NOTE | 2024-01-24 23:28 | PC.NURSE ---
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 States that pain is well controlled w/ ordered PO medications. Denies N/V. Dressing on back & behind right leg is CDI. Ice pack placed. Q2 turning. IV abx & IVF infusing as ordered. Oriented to call-light. Plan of care ongoing.
[2024-01-25 00:35] VITALS: BP 94/52; PULSE 64; RESP 18; TEMP 36.4; O2SAT 95
[2024-01-25] MEDS: LACTATED RINGERS 1,000 ML 125 ML IV (01:00)
[2024-01-25] MEDS: ACETAMINOPHEN 325 MG TABLET 650 MG PO (03:40)
[2024-01-25] MEDS: TRAMADOL 50 MG TABLET PO (03:41)
[2024-01-25] MEDS: CEFAZOLIN 2 GM/100 ML PREMIX 100 ML IV (04:24)
[2024-01-25 04:31] VITALS: BP 102/46; PULSE 67; RESP 18; TEMP 36.3; O2SAT 95
[2024-01-25 05:48] LABS: Hematocrit 28.9 % (36-46); Hemoglobin 9.6 g/dL (12.0-16.0)
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
[2024-01-25] MEDS: LACTATED RINGERS 1,000 ML 1000 ML IV (07:53)
[2024-01-25 08:00] VITALS: BP 111/50; PULSE 65; RESP 18; TEMP 36; O2SAT 100
[2024-01-25] MEDS: METFORMIN HCL 500 MG TABLET 750 MG PO (08:09)
[2024-01-25] MEDS: DOCUSATE 100 MG CAPSULE PO (08:11)
[2024-01-25] MEDS: DULOXETINE 30 MG CAPSULE 60 MG PO (08:11)
[2024-01-25] MEDS: GABAPENTIN 100 MG CAPSULE PO (08:11)
[2024-01-25] MEDS: TIZANIDINE 4 MG TABLET PO (08:12)
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
--- NOTE | 2024-01-25 16:07 | PC.NURSE ---
Discharge Note Patient A&O, VSS, RA, no complaints of pain/discomfort. Patient agreeable to discharge plan. Discharge packet reviewed with patient, all questions/concerns addressed. PIV discontinued. Patient able to dress self and pack all belongings. Patient taken down via wheelchair to POV.
== END 2024-01-25 12:00 | disposition home or self-care (01) | DRG 455 ==
PROVIDERS: Admitting Provider Orthopaedic Surgery Orthopaedic Surgery of the Spine; PCP Physician Assistant; Referring Provider Orthopaedic Surgery Orthopaedic Surgery of the Spine; Visit Provider Orthopaedic Surgery Orthopaedic Surgery of the Spine
PROC: 0SG00AJ Fusion of Lumbar Vertebral Joint with Interbody Fusion Device, Posterior Approach, Anterior Column, Open Approach (ICD-10-PCS; principal; 2024-01-24 12:45)
DX: M43.16 Spondylolisthesis, lumbar region (principal); I95.81 Postprocedural hypotension; M96.1 Postlaminectomy syndrome, not elsewhere classified; M48.07 Spinal stenosis, lumbosacral region; M48.062 Spinal stenosis, lumbar region with neurogenic claudication; M43.17 Spondylolisthesis, lumbosacral region; E11.9 Type 2 diabetes mellitus without complications; E78.5 Hyperlipidemia, unspecified; Z79.84 Long term (current) use of oral hypoglycemic drugs
CPT/HCPCS: 36415; 72100; 76000; 82962; 85014; 85018; 97116; 97161; 97165; 97530; 97535; C1713; C9290; J0171; J0690; J1100; J1170; J2405; J2704; J2765; J3010; J3410

== ENCOUNTER 2024-08-15 18:29 | Emergency (ER) | payer MEDICARE, SELFPAY ==
[2024-01-24 19:14] VITALS: BMI 31.5
[2024-08-15] VITALS (8 sets, daily range): BP systolic 121–175; BP diastolic 58–85; PULSE 55–64; RESP 16–20; TEMP 36.1; O2SAT 96–100; BMI 29.8
--- NOTE | 2024-08-15 18:41 | DI.RAD.S_ITS ---
PROCEDURE: XR SHOULDER RT MIN 2V INDICATIONS: fall onto right arm TECHNIQUE: 2 views of the shoulder were acquired. COMPARISON: None. FINDINGS: Bones: There is an acute appearing comminuted fracture involving proximal humeral shaft/surgical neck with superior migration of humeral shaft in relation to humeral head. Fracture line is seen extending to involve greater tuberosity. No jake dislocation. Moderate acromioclavicular joint osteoarthritic changes are seen. No suspicious bony lesions. Visualized ribs appear intact. Soft tissues: No suspicious soft tissue calcifications. IMPRESSION: Acute comminuted and displaced proximal humeral fracture as above. Moderate acromioclavicular joint osteoarthritis. No jake dislocation. Dictated by: Vahid Singh M.D. on 08/15/2024 at 19:13 Approved by: Vahid Singh M.D. on 08/15/2024 at 19:15
[2024-08-15] MEDS: ONDANSETRON 4 MG/2 ML INJ IV (19:21)
[2024-08-15] MEDS: HYDROMORPHONE 0.5 MG INJ IV ×2 (19:21→20:39)
--- NOTE | 2024-08-15 20:13 | DI.CT.S_ITS ---
PROCEDURE: CT UE RT WO CON INDICATIONS: R shoulder fx TECHNIQUE: Noncontrast 0.75 mm thick sections acquired from the acromioclavicular joint to the inferior scapula, with coronal and sagittal reformatting. COMPARISON: [facility], CR, XR SHOULDER RT MIN 2V, 08/15/2024, 18:43. FINDINGS: Image quality: Excellent. Bones: As seen on earlier shoulder radiograph, there is an acute comminuted fracture involving proximal humeral shaft/surgical neck with fracture line extending to involve both greater and lesser tuberosities. Anterior and lateral displacement of proximal humeral fractured fragments are seen. Slight lateral displacement of greater tuberosity fragment is also noted. No other fracture is seen. No dislocation. There is superior and medial migration of proximal humeral shaft in relation to glenoid. Moderate acromioclavicular joint and glenohumeral joint osteoarthritic changes are seen. No suspicious bony lesions. The visualized right ribs are intact. Soft tissues: There is no gross full-thickness rotator cuff tendon rupture. No rotator cuff muscle atrophy is seen on sagittal images. Moderate joint effusion is seen, no calcified intra-articular loose bodies. No abnormal soft tissue calcifications. The visualized right lung field show mild pulmonary edema with patchy ground-glass opacities. IMPRESSION: 1. Acute comminuted and displaced fracture involving right proximal humeral shaft/surgical neck with extension to involve greater and lesser tuberosities as described above. Proximal and medial migration of proximal humeral shaft in relation to glenoid. No other fracture or dislocation. 2. Moderate acromioclavicular joint and glenohumeral joint osteoarthritis. No suspicious bony lesions. 3. Moderate joint effusion and subacromial subdeltoid bursal fluid. Soft tissue swelling surrounding proximal humeral fracture site. No soft tissue mass or abnormal soft tissue calcifications. No gross full-thickness rotator cuff tendon rupture. Dictated by: Vahid Singh M.D. on 08/15/2024 at 21:03 Approved by: Vahid Singh M.D. on 08/15/2024 at 21:06
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
[2024-08-15] MEDS: TRAMADOL 50 MG PREPACK 1 BOTTLE MISC (22:40)
== END 2024-08-15 23:05 | disposition home or self-care (01) ==
PROVIDERS: Emergency Provider Emergency Medicine; PCP Physician Assistant
DX: S42.202A Unspecified fracture of upper end of left humerus, initial encounter for closed fracture (principal); W01.0XXA Fall on same level from slipping, tripping and stumbling without subsequent striking against object, initial encounter
CPT/HCPCS: 73030; 73200; 96374; 96375; 96376; 99284; J1171; J2405

== ENCOUNTER → 2024-10-11 14:50 | Outpatient (CLI) | payer MEDICARE, SELFPAY ==
[2024-01-24 19:14] VITALS: BMI 31.5
--- NOTE | 2024-10-11 14:52 | DI.CT.S_ITS ---
PROCEDURE: CT SHOULDER RIGHT WITHOUT CON INDICATIONS: fracture of proximal humerus TECHNIQUE: Noncontrast 0.75 mm thick sections acquired from the acromioclavicular joint to the inferior scapula, with coronal and sagittal reformatting. COMPARISON: [facility] [place], CR, XR SHOULDER 2+ VIEWS RIGHT, 08/29/2024, 9:56. [facility] [place], CR, XR SHOULDER 2+ VIEWS RIGHT, 09/29/2024, 9:53. FINDINGS: Image quality: Excellent. Bones: As seen on previous shoulder radiograph, there is the comminuted and impacted fracture involving right proximal humerus with fracture line extending to involve both greater and lesser tuberosities. There is proximal migration of humeral shaft in relation to humeral head with up to 2.5 cm impaction at fracture site. Anterolateral and dorsally displaced fractured greater tuberosity fragments are seen. Small amount of callus formation surrounding proximal humeral fracture site is noted. No other fracture or dislocation. Moderate acromioclavicular joint osteoarthritis and mild glenohumeral joint osteoarthritis is seen. No suspicious bony lesions. The visualized right ribs are intact. Soft tissues: There is no gross full-thickness rotator cuff tendon rupture. No significant rotator cuff muscle atrophy is seen on sagittal images. Small to moderate glenohumeral joint effusion is seen, no calcified intra-articular loose bodies. No abnormal soft tissue calcifications or soft tissue mass. No axillary lymphadenopathy by size criteria. The visualized right lung field is clear. IMPRESSION: 1. Subacute appearing comminuted , impacted and displaced fracture involving right proximal humeral shaft and humeral head as above. No other fracture or dislocation. No suspicious bony lesions. 2. Moderate acromioclavicular joint osteoarthritis and mild glenohumeral joint osteoarthritis. 3. No full-thickness rotator cuff tendon rupture. No significant rotator cuff muscle atrophy. No soft tissue mass or abnormal soft tissue calcifications. 4. Small to moderate joint effusion and subacromial subdeltoid bursal fluid, no gross calcified loose bodies. Dictated by: Vahid Singh M.D. on 10/12/2024 at 9:04 Approved by: Vahid Singh M.D. on 10/12/2024 at 9:12
== END ==
LOC: CT 14:51
PROVIDERS: PCP Internal Medicine; Referring Provider Orthopaedic Surgery; Visit Provider Orthopaedic Surgery
DX: S42.351A Displaced comminuted fracture of shaft of humerus, right arm, initial encounter for closed fracture (principal); M19.011 Primary osteoarthritis, right shoulder; M25.411 Effusion, right shoulder; X58.XXXA Exposure to other specified factors, initial encounter
CPT/HCPCS: 73200

== ENCOUNTER → 2024-12-27 14:27 | Outpatient (CLI) | payer MEDICARE, SELFPAY ==
[2024-01-24 19:14] VITALS: BMI 31.5
--- NOTE | 2024-12-27 14:31 | EKG_ITS ---
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
[2024-12-27 15:47] LABS: Add Manual Diff / Slide Review NO; Basophils Absolute Auto 100 /uL (0-100); Basophils Percent Auto 0.7 % (0-2); Eosinophils Absolute Auto 300 /uL (0-450); Eosinophils Percent Auto 3.5 % (2-4); Hematocrit 29.1 % (36-46); Hemoglobin 9.4 g/dL (12.0-16.0); Lymphocytes Absolute Auto 1900 /uL (1100-4500); Lymphocytes Percent Auto 26.6 % (25-40); Mean Corpuscular HGB Conc 32.1 % (30-36); Mean Corpuscular Hemoglobin 27.9 PG (26-34); Mean Corpuscular Volume 86.9 fL (80-100); Monocytes Absolute Auto 600 /uL (0-900); Monocytes Percent Auto 8.6 % (3-14); Neutrophils Absolute Auto 4300 /uL (1500-7000); Neutrophils Percent Auto 60.6 % (50-75); Platelet Count 312 X10^3/uL (150-400); Red Blood Cell Count 3.35 X10^6/uL (4.0-5.2); Red Cell Distribution Width 15.1 % (11.6-14.8); White Blood Cell Count 7.2 X10^3/uL (4.5-11.0)
[2024-12-27 15:57] LABS: Prothrombin Time 11.6 SECONDS (9.4-12.5)
[2024-12-27 15:59] LABS: PTT Partial Thromboplastin Tim 38 SECONDS (25.1-36.5)
[2024-12-27 16:13] LABS: BUN Creatinine Ratio 15.4 (6-22); Blood Urea Nitrogen 29 mg/dL (7-17); Calcium 9.3 mg/dL (8.4-10.2); Carbon Dioxide 18 mmol/L (22-32); Chloride 104 mmol/L (98-107); Estimated Glomerular Filt Rate 29 mL/min (>60); Glucose 97 mg/dL (70-99); HEMOLYSIS < 15 (0-50); Sodium 135 mmol/L (137-145)
[2024-12-27 16:15] LABS: Potassium 5.8 mmol/L (3.4-5.1)
== END ==
LOC: LAB 14:28
PROVIDERS: PCP Internal Medicine; Referring Provider Orthopaedic Surgery; Visit Provider Orthopaedic Surgery
DX: Z01.818 Encounter for other preprocedural examination (principal); Z51.81 Encounter for therapeutic drug level monitoring; Z01.812 Encounter for preprocedural laboratory examination
CPT/HCPCS: 36415; 80048; 85025; 85610; 85730; 93005

== ENCOUNTER 2025-01-05 06:02 | Inpatient (IN) | payer MEDICARE, SELFPAY ==
[2024-01-24 19:14] VITALS: BMI 31.5
[2025-01-02 08:09] VITALS: BMI 33.3
[2025-01-05] VITALS (8 sets, daily range): BP systolic 103–127; BP diastolic 50–65; PULSE 62–92; RESP 12–16; TEMP 36.2; O2SAT 95–100; BMI 33.3
--- NOTE | 2025-01-05 06:00 | DI.RAD.S_ITS ---
PROCEDURE: XR SHOULDER RT MIN 2V INDICATIONS: TSA TECHNIQUE: 2 views of the shoulder were acquired. COMPARISON: [facility] [place], CR, XR SHOULDER 2+ VIEWS RIGHT, 12/07/2024, 10:16. [facility], CR, XR SHOULDER 2+ VIEWS RIGHT, 12/26/2024, 9:55. [facility], CR, XR SHOULDER RT MIN 2V, 08/15/2024, 18:43. FINDINGS: Bones: Postsurgical changes are seen from reverse total shoulder arthroplasty with hardware components in expected positions. Soft tissues: No suspicious soft tissue calcifications. IMPRESSION: Right reverse total shoulder arthroplasty in expected position. Approved by: Juve Moseley M.D. on 01/05/2025 at 10:40
--- NOTE | 2025-01-05 07:01 | PM.PREOP ---
Pre-operative Note Interval Note History & Physical reviewed/Exam performed by Physician: Yes Changes to H&P: No
[2025-01-05] MEDS: LACTATED RINGERS 1,000 ML 42 ML IV ×2 (07:30→10:23)
[2025-01-05] MEDS: VANCOMYCIN 1,500 MG/300 ML PIGGYBACK 200 MG IV (07:58)
[2025-01-05] MEDS: ACETAMINOPHEN IV 1,000 MG/100 ML VIAL 400 MG IV (07:59)
[2025-01-05] MEDS: GENTAMICIN 430 MG in SODIUM CHLORIDE 0.9% 100 ML 110.75 MG IV (08:05)
--- NOTE | 2025-01-05 08:35 | SUR.OPER ---
Beach chair with skytron shoulder positioner. Lower body on padded OR bed. Head in foam padded head cradle, secured with straps. Non-operative arm secured <90 degrees abduction. Pillow under knees. Safety belt at thigh. Cloth tape over blanket over lower legs.
[2025-01-05] MEDS: LIDOCAINE 1% W/EPI 10ML 20 ML INJ (08:45)
--- NOTE | 2025-01-05 09:45 | P.OP_ITS ---
Operative Date/Time/Diagnoses Date of procedure: 01/05/25 Time of procedure: 08:00 Pre-op diagnosis: Right reverse total shoulder dislocation with fracture Post-op diagnosis: same Procedure & Clinicians Procedure: Open reduction with revision of humeral implants of previous right reverse total shoulder arthroplasty Same procedure as scheduled: Yes Indications: Dislocation with proximal humerus fracture of right reverse total shoulder arthroplasty due to a traumatic fall. Surgeon: Timothy Jenkins Magnet Valve Assembler: Serg Carlisle Anesthesia Type: General and Peripheral nerve block Operative Notes Findings: Anterior dislocation of a right reverse total shoulder arthroplasty with loosening of the humeral implant. No sign of any loosening of the glenoid components. Closure Type: primary Applied: implant(s) (Size 9 stem 33 suture cup 33+ 9 humeral spacer 30 3+3 humeral insert) Estimated Blood Loss (mL): 50 Procedure in detail: On date of service, Patient was met in the holding area. The operative site was signed and witnessed by the OR staff. The surgeries once again discussed with the patient and any remaining questions they had were answered fully. Patient was taken back to the operating theater and placed on the operating table in a supine position. Great care was taken to ensure that all bony prominences were properly padded. Patient was then placed into the beach chair position. The head and neck were properly positioned and secured. A timeout was performed verifying patient's name, procedure, and the operative site. The right upper extremity was then prepped and draped in the normal sterile fashion. Previously, the bony anatomy and incision were marked out as well as injected with Marcaine with epinephrine. A deltopectoral approach was performed using the previous incision. 10 blade was used to incise the skin and fascial tissue. A deep knife was used to continue sharp dissection until the cephalic vein was visualized. The cephalic vein was dissected free allowing us to expose the deltopectoral interval. This interval was then developed. A Graham elevator was used to free up the deltoid of any scarring both superficially as well as deeply. The vein and the deltoid were taken laterally while the pectoralis was taken medially. This gave us good visualization of the strap muscles. The clavipectoral fascia was removed and the strap muscles were then retracted medially with the pectoralis. Patient had a anterior dislocation. We could easily reduce the dislocation. There was some rotation of the humeral stem. Patient had a fracture to the medial proximal lip of the proximal humerus. Due to the loosening the entire stem and cup and liner were removed. The humerus was rebroached and a size 9 stem provided a nice secure fit with no rotation. Liners were trialed and a + 9 provided the best stability at the joint. Trial implants were removed and the actual size 9 stem was implanted. Trial liners were trialed. And a +12 provided the best stability. So the final suture cup in line placed. Shoulder was reduced. Subscapularis was repaired to the suture cup. The supraspinatus was brought over and repaired as well. The wound was copiously irrigated and then closed in a layered fashion. Patient was taken to the PACU in stable condition. The assistance of a skilled assistant federal public defender was necessary during this procedure for patient positioning, retraction of surgical wound, positioning of operative limb.. The case would have been much longer and more difficult had an physician assistant psychiatry not been available. The services of the assistant federal public defender were necessary for this case. Complications: none Post-operative Condition: stable Disposition: same day surgery Plan for aftercare: Patient will follow our postoperative protocol for reverse total shoulder arthroplasty. Patient had a subscapularis repair and will need to have that protected. Patient will be in a sling for 6 weeks.
[2025-01-05] MEDS: ONDANSETRON 4 MG/2 ML INJ IV (10:33)
== END 2025-01-05 11:20 | disposition home or self-care (01) | DRG 483 ==
PROVIDERS: Admitting Provider Orthopaedic Surgery; PCP Internal Medicine; Referring Provider Orthopaedic Surgery; Visit Provider Orthopaedic Surgery
PROC: 0RRJ0J6 Replacement of Right Shoulder Joint with Synthetic Substitute, Humeral Surface, Open Approach (ICD-10-PCS; CPT 23472; principal; 2025-01-05 07:45)
DX: S42.291A Other displaced fracture of upper end of right humerus, initial encounter for closed fracture (principal); T84.028A Dislocation of other internal joint prosthesis, initial encounter; M97.31XA Periprosthetic fracture around internal prosthetic right shoulder joint, initial encounter; T84.038A Mechanical loosening of other internal prosthetic joint, initial encounter; S50.01XA Contusion of right elbow, initial encounter; W18.30XA Fall on same level, unspecified, initial encounter; Y93.01 Activity, walking, marching and hiking; E66.9 Obesity, unspecified; Z68.35 Body mass index [BMI] 35.0-35.9, adult; Y83.1 Surgical operation with implant of artificial internal device as the cause of abnormal reaction of the patient, or of later complication, without mention of misadventure at the time of the procedure; E11.8 Type 2 diabetes mellitus with unspecified complications; Z79.84 Long term (current) use of oral hypoglycemic drugs; E78.5 Hyperlipidemia, unspecified; Z82.61 Family history of arthritis; Z79.82 Long term (current) use of aspirin; Z88.6 Allergy status to analgesic agent; Z88.1 Allergy status to other antibiotic agents; Z88.5 Allergy status to narcotic agent; Z82.49 Family history of ischemic heart disease and other diseases of the circulatory system; Z83.3 Family history of diabetes mellitus
CPT/HCPCS: 73030; C1776; C1713; J0131; J1100; J1885; J2250; J2405; J2704; J3010

== ENCOUNTER → 2025-02-05 14:55 | Outpatient (CLI) | payer MEDICARE, SELFPAY ==
[2024-01-24 19:14] VITALS: BMI 31.5
--- NOTE | 2025-02-05 14:59 | DI.RAD.S_ITS ---
PROCEDURE: XR SHOULDER RT MIN 2V INDICATIONS: SHOULDER PAIN TECHNIQUE: 3 views of the shoulder were acquired. COMPARISON: [facility], CR, XR SHOULDER 2+ VIEWS RIGHT, 12/26/2024, 9:55. [facility], CR, XR SHOULDER RT 2+ VIEWS, 01/05/2025, 10:06. FINDINGS: Bones: Dislocated reversed shoulder arthroplasty. Healing periprosthetic fracture of the proximal humerus. No suspicious bony lesions. Visualized ribs appear intact. Soft tissues: No suspicious soft tissue calcifications. IMPRESSION: Dislocated total reversed shoulder arthroplasty. Healing periprosthetic fracture. Dictated by: Maico Malloy M.D. on 02/05/2025 at 15:34 Approved by: Maico Malloy M.D. on 02/05/2025 at 15:36
== END ==
PROVIDERS: PCP Internal Medicine; Referring Provider Orthopaedic Surgery; Visit Provider Orthopaedic Surgery
DX: T84.028A Dislocation of other internal joint prosthesis, initial encounter (principal); Z96.611 Presence of right artificial shoulder joint
CPT/HCPCS: 73030

== ENCOUNTER 2025-02-05 15:24 | Emergency (ER) | payer MEDICARE, SELFPAY ==
[2024-01-24 19:14] VITALS: BMI 31.5
[2025-02-05 15:48] VITALS: BP 161/77; PULSE 68; RESP 18; TEMP 36.3; O2SAT 99; BMI 32.8
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
--- NOTE | 2025-02-05 18:29 | PC.NURSE ---
Pt states that right shoulder has been dislocated for what she believes is 3 weeks. C/o 12/14 pain that she states feels like marbles rolling around in her shoulder. Hx of shoulder fx & surgery 08/2024 and surgical revision 11/2024. 12/14 pain. A&Ox4.
== END 2025-02-05 19:00 | disposition home or self-care (01) ==
PROVIDERS: Emergency Provider Emergency Medicine; PCP Internal Medicine
DX: M24.411 Recurrent dislocation, right shoulder (principal); T84.84XA Pain due to internal orthopedic prosthetic devices, implants and grafts, initial encounter
CPT/HCPCS: 73030; 99281; 99283